=== PATIENT | female | born 1985 | race American Indian/Alaskan Native ===

== ENCOUNTER 2017-12-29 23:27 | Emergency (ER) | payer OTHER ==
[2017-12-30 01:18] VITALS: BP 122/81
[2017-12-30] MEDS ORDERED: REGLAN IV ONE (02:57)
[2017-12-30] MEDS ORDERED: BENADRYL IV ONE (02:57)
--- NOTE | 2017-12-30 02:59 | Emergency Department Report ---
ED Headache HPI - General Chief Complaint: Headache Stated Complaint: HEADACHE,NECK PAIN Time Seen by Provider: 12/30/17 02:34 - History of Present Illness Initial Comments: Pt. is a 32 y.o female with a history of migraine headaches who presents to ED c/o constant, dull, non radiation 8/10 intensity type headache x 4 days. Pt. states pain located to and occipital region. She denies any recent head trauma , fall, interested had Pt. admits pain not relieved with Motrin , Pt. denies fever, chills, nausea, vomiting, trauma, vision impairment, Timing/Duration: 1 week, constant Quality: achy, constant, throbbing Head Injury Location: temporal, occipital Recent Head Trauma: no recent headache/trauma, occasional headaches Associated Symptoms: denies: confusion, fatigue, facial pain, nausea/vomiting, nasal congestion, seizures, sinus infection, stiff neck Allergies/Adverse Reactions: Allergies oxycodone Allergy (Verified 12/30/17 01:18) Itching Home Medications: Ambulatory Orders Butalb/Acetamin/Caff 50-325-40 [Fioricet] 1 tab PO Q8HR PRN #30 tablet 12/30/17 ED Review of Systems ROS: Stated complaint: HEADACHE,NECK PAIN Other details as noted in HPI Constitutional: denies: chills, fever Eyes: denies: eye pain, eye discharge, vision change ENT: denies: ear pain, throat pain Respiratory: denies: cough, shortness of breath, wheezing Cardiovascular: denies: chest pain, palpitations Endocrine: no symptoms reported Gastrointestinal: denies: abdominal pain, nausea, diarrhea Genitourinary: denies: urgency, dysuria, discharge Musculoskeletal: denies: back pain, joint swelling, arthralgia Skin: denies: rash, lesions, pruritus Neurological: headache. denies: weakness, numbness, paresthesias, confusion, abnormal gait Psychiatric: denies: anxiety, depression Hematological/Lymphatic: denies: easy bleeding, easy bruising ED Past Medical Hx - Past Medical History Previous Medical History?: No - Surgical History Past Surgical History?: No - Social History Smoking Status: Never Smoker Substance Use Type: None - Medications Home Medications: Home Medications Medication Instructions Recorded Confirmed Last Taken Type Butalb/Acetamin/Caff 50-325-40 1 tab PO Q8HR PRN #30 tablet 12/30/17 Unknown Rx [Fioricet] ED Physical Exam - General Limitations: No Limitations General appearance: alert, in no apparent distress - Head Head exam: Present: atraumatic, normocephalic - Eye Eye exam: Present: normal appearance - ENT ENT exam: Present: mucous membranes moist - Neck Neck exam: Present: normal inspection, full ROM, other (no nuchal rigidity). Absent: tenderness, lymphadenopathy - Respiratory Respiratory exam: Present: normal lung sounds bilaterally. Absent: respiratory distress - Cardiovascular Cardiovascular Exam: Present: regular rate, normal rhythm. Absent: systolic murmur, diastolic murmur, rubs, gallop - GI/Abdominal GI/Abdominal exam: Present: soft, normal bowel sounds - Extremities Exam Extremities exam: Present: normal inspection - Back Exam Back exam: Present: normal inspection - Neurological Exam Neurological exam: Present: alert, oriented X3, CN II-XII intact, normal gait, reflexes normal. Absent: motor sensory deficit - Expanded Neurological Exam Expanded Patient oriented to: Present: person, place, time Speech: Present: fluid speech Cranial nerves: EOM's Intact: Normal, Facial Sensation: Normal Cerebellar function: Finger to Nose: Normal Sensory exam: Upper Extremity Light Touch: Normal, Lower Extremity Temperature: Normal Motor strength exam: RUE: 5, LUE: 5, RLE: 5, LLE: 5 DTR: knee (R): 2+, knee (L): 2+ Best Eye Response ([place]): (4) open spontaneously Best Motor Response ([place]): (6) obeys commands Best Verbal Response ([place]): (5) oriented Laura Total: 15 - Psychiatric Psychiatric exam: Present: normal affect, normal mood - Skin Skin exam: Present: warm, dry, intact, normal color. Absent: rash ED Course Vital Signs 12/30/17 01:14 Temperature 98.2 F Pulse Rate 62 Blood Pressure 122/81 O2 Sat by Pulse 96 Oximetry ED Medical Decision Making - Medical Decision Making 32-year-old female presents with migraine headache. ED course: Patient received Reglan and Benadryl in ed Discussed the patient's will avoid migraine triggers such as stress, caffeine, hydration and hunger Discussed patient to monitor blood pressure daily. Pt has no history of hypertension. She reports feeling better and headache resolved after administration of medicine. She was sleeping in ED room Vital signs are normal. She is in no acute distress, she is neurologically intact no neuro deficit Discussed to follow up with neurologist if headaches persist. Discussed onset of new symptoms or worsening symptoms to return to ED. Critical care attestation.: If time is entered above; I have spent that time in minutes in the direct care of this critically ill patient, excluding procedure time. ED Disposition Clinical Impression: Migraine headache without aura, Tension type headache Disposition: TO HOME OR SELFCARE Is pt being admited?: No Does the pt Need Aspirin: No Condition: Stable Instructions: Migraine Headache (ED), Tension Headache (ED), Acute Headache (ED ) Additional Instructions: Make sure to follow up with the primary care physician as discussed. Take all your medications as you've been prescribed. If you have any worsening symptoms or develop new symptoms please return to ED immediately. Prescriptions: Butalb/Acetamin/Caff 50-325-40 [Fioricet] 1 tab PO Q8HR PRN #30 tablet PRN Reason: Headache Referrals: PRIMARY CARE, [Primary Care Provider] - 3-5 Days KATE MARROQUIN MD [Staff Physician] - 3-5 Days [facility] [Outside] - 3-5 Days [facility] [Outside] - 3-5 Days Forms: Accompanied Note, Work/School Release Form(ED) Time of Disposition: 03:55
== END 2017-12-30 04:10 | disposition home or self-care (01) ==
LOC: ED 23:27
DX: G43.009 Migraine without aura, not intractable, without status migrainosus (principal); G44.209 Tension-type headache, unspecified, not intractable; Z88.6 Allergy status to analgesic agent
CPT/HCPCS: 96374; 96375; 99282; J1200; J2765